=== PATIENT | male | born 1955 | race Caucasian/White ===

== ENCOUNTER 2022-04-01 15:23 | Emergency (ER) | payer BC, SELFPAY ==
[2022-04-01] VITALS (13 sets, daily range): BP systolic 152–169; BP diastolic 80–110; PULSE 50–54; RESP 18; TEMP 36.2; O2SAT 96–99
--- NOTE | ~2022-04-01 | CT_ITS ---
EXAMINATION: CT abdomen pelvis wo con DATE: 04/01/2022 19:07 INDICATION: POSSIBLE UTI, LOW CHRONIC BACK PAIN RADIATING DOWN L LEG TECHNIQUE: Computed tomography (CT) of the abdomen and pelvis was performed without intravenous contr ast. Automated exposure control and iterative reconstruction technique were employed. The dose-length product was 1073.30 mGy-cm. COMPARISON: None FINDINGS: Lower thorax: Aortic valve and coronary artery calcifications. Liver: Normal. Biliary/Gallbladder: Gallbladder is normal. No bile duct dilation. Spleen: Normal. Pancreas: No mass or duct dilation. Adrenals:No mass. Kidneys: 2.6 cm intermediate density left midpole mass. Multiple bilateral renal cysts and lesions th at are too small to characterize. Bilateral perinephric stranding. GI tract: No small or large bowel dilation. Appendix not visualized. Scattered diverticuli without ev idence of diverticulosis. Mesentery/Peritoneum: No ascites, mass, or free air. Multiple surgical clips in the right lower quadr ant. Retroperitoneum: No mass. Fusiform dilation of the infrarenal abdominal aorta up to a maximum transve rse diameter 2.6 cm. Pelvis: Bladder wall thickening. Prostatic calcifications, otherwise the pelvic organs are within nor mal limits. Bones/Soft Tissues: Soft tissues and body wall unremarkable. L2 compression fracture with vertebropla sty cement. Severe left hip arthritis. AVN changes in the right hip. Additional Findings: None. IMPRESSION: Possible cystitis versus outlet obstruction. Perinephric stranding may be related to medical renal di sease or ascending infection. Indeterminate left midpole renal mass, recommend nonemergent outpatient renal CT or MRI for further evaluation. 2.6 cm infrarenal abdominal aortic aneurysm, recommend follo w-up in 5 years. Reviewed, dictated and finalized at location [facility]. IMPRESSION: Possible cystitis versus outlet obstruction. Perinephric stranding may be relat ed to medical renal disease or ascending infection. Indeterminate left midpole renal mass, recommend nonemergent outpatient renal CT or MRI for further evalua tion. 2.6 cm infrarenal abdominal aortic aneurysm, recommend follow-up in 5 orestes flynn
[2022-04-01 16:11] LABS: Appearance Urine Cloudy (Clear); Bilirubin Urine Negative (Negative); Color Urine Yellow (Yellow); Glucose Urine UA Negative (Negative); Ketones Urine Negative (Negative); Leukocyte Esterase Ur 3+ LEU/UL (Negative); Nitrate Urine Positive (Negative); Protein Urine Negative (Negative)
[2022-04-01 16:14] LABS: Bacteria Urine Trace /hpf; Mucus Urine Rare /lpf; WBC Urine >75 /hpf
[2022-04-01 16:15] LABS: Add Urine Microscopic? YES; Blood Urine Trace-Intact (Negative)
[2022-04-01] MEDS: HYDROcodone/acetaminophen (*CRX) 5-325 MG TABLET 1 TAB PO (19:10)
--- NOTE | 2022-04-01 19:16 | PC.NURSE ---
BSSR from [facility]. States pt seems confused. Pt A & O 4 but appears confused at times. Bed alarm placed under patient for safety. Will continue to monitor.
[2022-04-01 19:29] LABS: Basophils Percent Auto 0.3 % (0.2-1.2); Eosinophils Absolute Auto 0.2 K/mm3 (0-0.3); Eosinophils Percent Auto 2.8 % (0-4.4); Hematocrit 40.9 % (42.0-52.0); Hemoglobin 13.6 g/dL (14.0-18.0); Immature Granulocyte Absolute 0.02 K/mm3 (0.00-0.031); Immature Granulocyte Percent A 0.3 % (0-0.5); Lymphocytes Absolute Auto 1.78 K/mm3 (0.9-3.2); Lymphocytes Percent Auto 26.2 % (18.3-44.2); Mean Corpuscular HGB Conc 33.3 g/dl (32-36); Mean Corpuscular Hemoglobin 31.1 pg (26-34); Mean Corpuscular Volume 93.6 fl (80-100); Mean Platelet Volume 9.2 fl (7.4-10.4); Monocytes Absolute Auto 0.7 K/mm3 (0.1-0.6); Monocytes Percent Auto 9.7 % (2.6-8.5); Neutrophils Absolute Auto 4.1 K/mm3 (1.3-6.7); Neutrophils Percent Auto 60.7 % (45.5-73.1); Platelet Count Result 200 k/mm3 (150-375); Red Blood Count 4.37 M/mm3 (4.6-6.20); Red Cell Distribution Width 13.5 % (11.5-14.5); White Blood Count 6.8 K/mm3 (4.5-10.0)
[2022-04-01 19:42] LABS: Alanine Aminotransferase 12 U/L (4-50); Albumin Level 4.5 g/dL (3.5-5.1); Alkaline Phosphatase 70 U/L (38-126); Anion Gap 4 mmol/L (8-16); Aspartate Amino Transferase 25 U/L (17-59); Bilirubin,Total 0.3 mg/dL (0.2-1.3); Blood Urea Nitrogen 17 mg/dL (9-20); Calcium 8.5 mg/dL (8.4-10.2); Carbon Dioxide 30 mmol/L (22-30); Chloride 95 mmol/L (98-107); Estimated CRCL calculation 121 ml/min; Estimated Glomerular Filt Rate > 60; Glucose 96 mg/dL (65-110); Lactic Acid Reflex 0.5 mmol/L (0.7-2.0); Potassium 4.4 mmol/L (3.4-5.0); Sodium 129 mmol/L (137-145)
--- NOTE | 2022-04-01 20:38 | PC.NURSE ---
RN went to start IV abx but patient states dont hook my up to that shit unless you get something for my nerves or pain. RN informed ERP. ERP in to speak with pt at this time. Pt states I am going to walk out of here if I dont get something.
[2022-04-01] MEDS: ALPRAZolam (*CRX) 0.25 MG TABLET PO (20:47)
--- NOTE | 2022-04-01 21:09 | PC.NURSE ---
Pt starting to remove IV. RN asked pt to stop at this time. Pt states take this shit out I do not need it now.
--- NOTE | 2022-04-01 21:16 | ED.BACK ---
HPI - Back Pain/Injury General Chief Complaint: Back Pain/Injury Stated Complaint: back pain Time Seen by Provider: 04/01/22 18:42 Source: RN notes reviewed History of Present Illness HPI Narrative: Patient presents emergency department from home for lower back pain. Patient states he has a chronic history of lower back pain and is on hydrocodone, Lyrica and meloxicam for the pain states the pain has become worse over the past several days with pain rating to the left hip denies any new trauma or injury denies any fevers or chills abdominal pain nausea vomiting diarrhea bowel or bladder incontinence or any other symptoms. Patient requested come to the ER from alf for evaluation of his back pain he does have a spinal stimulator Related Data Allergies Allergy/AdvReac Type Severity Reaction Status Date / Time No Known Allergies Allergy Verified 04/01/22 19:09 Review of Systems Review of Systems: Gen.: Denies fevers or chills ENT: Denies congestion Respiratory: Denies shortness of breath or cough CV: Denies chest pain or palpitations GI: Denies abdominal pain nausea, emesis or diarrhea denies incontinence Musculoskeletal: See HPI Neuro: Denies numbness, tingling, weakness or focal weakness Skin: Denies rash Except as documented, all other systems reviewed and negative [facility] Past Medical History Medical History (Updated 04/01/22 @ 21:22 by Odell Tabor DO) Chronic back pain Dementia Social History Social History (Updated 04/01/22 @ 21:19 by Odell Tabor DO) Smoking status: Former smoker Exam Narrative: APPEARANCE: No acute distress, nontoxic, resting in bed EYES: EOMI HEENT: Normocephalic, atraumatic, OMM RESPIRATORY: No respiratory distress Clear to auscultation bilaterally with no rhonchi wheezing or rales. CARDIOVASCULAR: Regular rate and rhythm without murmurs rubs or gallops. ABDOMINAL: Soft, nontender, nondistended, no rebound or guarding MUSCULOSKELETAl: Moves all extremities. No clubbing, cyanosis or edema. Back: No midline thoracic lumbar tenderness palpation tender palpation over left paravertebral muscles L4-5 and left piriformis region NEURO: Awake and alert. Following commands, speech normal, no focal deficits muscle strength 5 out of 5 bilateral lower extremities SKIN:: Warm, dry. No rashes lesions or abrasions PSYCHIATRIC: Normal affect/mood, Course Course Emergency Course: Reviewed records patient currently is on lidocaine patches meloxicam hydrocodone and Lyrica Patient states he is feeling very anxious requesting Xanax he is on Ativan and Xanax at home will give small amount of Xanax Discussed with patient results of workup and diagnosis. Discussed need for follow-up with primary care, proper use of medication, and reasons to return to the emergency department. Patient understands and agrees to current treatment plan Vital Signs Vital signs: Vital Signs Temperature 97.1 F L 04/01/22 15:53 Pulse Rate 54 L 04/01/22 15:53 Respiratory Rate 18 04/01/22 15:53 Blood Pressure 152/81 H 04/01/22 15:53 Pulse Oximetry 98 04/01/22 15:53 Temperature 97.1 F L 04/01/22 15:53 Pulse Rate 50 L 04/01/22 19:17 Respiratory Rate 18 04/01/22 19:17 Blood Pressure 164/110 H 04/01/22 20:32 Pulse Oximetry 96 04/01/22 20:32 MDM - Back Pain/Injury MDM Narrative Medical decision making narrative: Patient reports with chronic back pain he is on pain medications including narcotics and benzodiazepines at home on evaluation the patient does have a UA consistent with a UTI he is on Flomax for enlarged prostate lab results show a white count within normal limits as well as a normal lactic acid CT scan does show possible ascending UTI will treat with antibiotics at this time will discharge and follow-up as an outpatient his vital signs are also stable at this time Lab Data Result diagrams: 04/01/22 19:22 04/01/22 19:22 Labs: Lab Results
--- NOTE | 2022-04-01 21:57 | PC.NURSE ---
called [facility] to request transport. ETA [phone]
== END 2022-04-01 22:39 | disposition home or self-care (01) ==
PROVIDERS: Emergency Provider Emergency Medicine; PCP Internal Medicine
DX: N39.0 Urinary tract infection, site not specified (principal); M54.50 Low back pain, unspecified; G89.29 Other chronic pain; F03.90 Unspecified dementia, unspecified severity, without behavioral disturbance, psychotic disturbance, mood disturbance, and anxiety; Z87.891 Personal history of nicotine dependence
CPT/HCPCS: 36415; 74176; 80053; 81001; 83605; 85025; 87077; 87086; 87186; 96365; 99284; A9270; J0696

== ENCOUNTER 2022-04-29 08:54 | Emergency (ER) | payer BC, SELFPAY ==
[2022-04-29 08:55] VITALS: BP 130/84; PULSE 81; RESP 18; TEMP 36.9; O2SAT 94
[2022-04-29 09:00] VITALS: BP 135/69; PULSE 99; RESP 14; O2SAT 94
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
[2022-04-29 09:50] VITALS: RESP 18; O2SAT 94
[2022-04-29 10:00] VITALS: BP 113/69; PULSE 60; RESP 14; O2SAT 94
[2022-04-29 10:05] LABS: Appearance Urine Clear (Clear); Bilirubin Urine Negative (Negative); Blood Urine Negative (Negative); Color Urine Yellow (Yellow); Glucose Urine UA Negative (Negative); Ketones Urine Negative (Negative); Leukocyte Esterase Ur Negative LEU/UL (Negative); Nitrate Urine Negative (Negative); Protein Urine Trace mg/dL (Negative); Specific Grav Ur 1.015 (1.001-1.035); Urobilinogen Urine 0.2 mg/dL (<2.0); pH Urine 7.5 (5.0-9.0)
[2022-04-29 10:09] LABS: Mucus Urine Rare /lpf; Squamous Epithelial Cell Urine Rare /hpf (Few); WBC Urine 0-3 /hpf
[2022-04-29 10:13] LABS: Add Urine Microscopic? YES
[2022-04-29] MEDS: TETANUS,DIPHTHERIA,AC PERTUSSIS ADULT (0.5 ML) BOOSTRIX IM (10:21)
[2022-04-29 11:00] VITALS: BP 130/87; PULSE 60; RESP 17; O2SAT 97
== END 2022-04-29 11:35 ==
PROVIDERS: Physician Assistant; Emergency Provider Emergency Medicine; PCP Internal Medicine
DX: F03.90 Unspecified dementia, unspecified severity, without behavioral disturbance, psychotic disturbance, mood disturbance, and anxiety (principal); S60.411A Abrasion of left index finger, initial encounter; Z23 Encounter for immunization; Z87.891 Personal history of nicotine dependence; Y04.0XXA Assault by unarmed brawl or fight, initial encounter
CPT/HCPCS: 81001; 90471; 90715; 99282

== ENCOUNTER 2022-08-09 16:22 | Observation (INO) | payer BC, SELFPAY ==
[2022-08-09] VITALS (16 sets, daily range): BP systolic 139–163; BP diastolic 75–108; PULSE 54–80; RESP 11–20; TEMP 36.3–36.8; O2SAT 90–100; BMI 29.3; BMI 29.5
--- NOTE | ~2022-08-09 | XR_ITS ---
EXAMINATION: XR chest 2V DATE: 08/09/2022 17:11 INDICATION: Chest pain TECHNIQUE: frontal and lateral views of the chest were obtained. COMPARISON: CT abdomen and pelvis dated 04/01/2022 FINDINGS: Unchanged mild linear discoid atelectasis at the lingula. No other airspace opacities, pulmonary lorrie a, pleural effusion or pneumothorax. The cardiomediastinal silhouette is normal. Multiple tiny metall ic densities projecting over the bilateral chest of indeterminate etiology. Correlate with clinical h istory. L2 compression fracture with vertebroplasty. IMPRESSION: 1. Unchanged mild lingular discoid atelectasis/scarring. No other acute cardiopulmonary disease. Reviewed, dictated and finalized at location A. IMPRESSION: 1. Unchanged mild lingular discoid atelectasis/scarring. No other acute cardiop ulmonary disease.
--- NOTE | 2022-08-09 16:23 | ECG_ITS ---
Measurements Intervals [place] Rate: 64 P: 55 TX: 187 QRS: 70 QRSD: 96 T: 72 QT: 380 QTc: 394 Interpretive Statements SINUS RHYTHM BASELINE ARTIFACT- I, III, AVL NORMAL ECG NO PREVIOUS ECG AVAILABLE FOR COMPARISON Electronically Signed On 08-09-2022 16:29:34 CDT by Wild Alberts D.O.
[2022-08-09 16:50] LABS: Basophils Percent Auto 0.3 % (0.2-1.2); Eosinophils Absolute Auto 0.2 K/mm3 (0-0.3); Eosinophils Percent Auto 3.8 % (0-4.4); Hematocrit 37.2 % (42.0-52.0); Hemoglobin 12.7 g/dL (14.0-18.0); Immature Granulocyte Absolute 0.03 K/mm3 (0.00-0.031); Immature Granulocyte Percent A 0.5 % (0-0.5); Lymphocytes Absolute Auto 1.88 K/mm3 (0.9-3.2); Lymphocytes Percent Auto 31.1 % (18.3-44.2); Mean Corpuscular HGB Conc 34.1 g/dl (32-36); Mean Corpuscular Hemoglobin 30.8 pg (26-34); Mean Corpuscular Volume 90.1 fl (80-100); Mean Platelet Volume 9.4 fl (7.4-10.4); Monocytes Absolute Auto 0.6 K/mm3 (0.1-0.6); Monocytes Percent Auto 9.6 % (2.6-8.5); Neutrophils Absolute Auto 3.3 K/mm3 (1.3-6.7); Neutrophils Percent Auto 54.7 % (45.5-73.1); Platelet Count Result 228 k/mm3 (150-375); Red Blood Count 4.13 M/mm3 (4.6-6.20); Red Cell Distribution Width 13.8 % (11.5-14.5)
[2022-08-09 16:53] LABS: Alanine Aminotransferase 14 U/L (6-50); Albumin Level 4.3 g/dL (3.5-5.1); Alkaline Phosphatase 57 U/L (38-126); Anion Gap 11 mmol/L (8-16); Aspartate Amino Transferase 24 U/L (17-59); Bilirubin,Total 0.4 mg/dL (0.2-1.3); Blood Urea Nitrogen 19 mg/dL (9-20); Calcium 8.3 mg/dL (8.4-10.2); Carbon Dioxide 25 mmol/L (22-30); Chloride 91 mmol/L (98-107); Estimated Glomerular Filt Rate > 60; Glucose 99 mg/dL (65-110); Lipase 96 U/L (23-300); Sodium 127 mmol/L (137-145)
[2022-08-09 16:56] LABS: Prothrombin Time 13.1 Seconds (11.1-14.7)
[2022-08-09 16:57] LABS: Partial Thromboplastin Time 29.2 SECONDS (22.3-36.8)
[2022-08-09 17:04] LABS: Troponin I < 0.012 ng/mL (0.000-0.034)
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
[2022-08-09 19:52] LABS: Ethanol < 10 mg/dL (<10)
[2022-08-09 20:05] LABS: Troponin I < 0.012 ng/mL (0.000-0.034)
--- NOTE | 2022-08-09 20:42 | PM.IMHP ---
H&P: HPI History of Present Illness Date/Time: 08/09/22 20:42 Chief Complaint: chest pain [facility] Past Medical History Medical History Chronic back pain Dementia Family History Family History Mother Congestive heart failure Father Prostate carcinoma Social History Social History Smoking packs per day: 1.5 Smoking cigarettes per day: 30.0 Years smoked: 49 Smoking pack-years: 73.50 Smoking status: Current every day smoker Tobacco type: cigarettes Second hand tobacco smoke exposure: Yes Alcohol intake: current Drinks per week: 1 Substance use: former Substance use type: marijuana and prescription drug Other substance usage details: [place] Spiritual care concerns: No Meds Home Medications and Allergies Home Medications Medication Instructions Recorded Confirmed Type atorvastatin 40 mg tablet 40 mg PO DAILY 08/09/22 08/10/22 History carbamazepine 400 mg 400 mg PO BID 08/09/22 08/10/22 History tablet,extended release,12 hr citalopram 20 mg tablet 20 mg PO DAILY 08/09/22 08/10/22 History famotidine 40 mg tablet 40 mg PO Q12H 08/09/22 08/10/22 History lidocaine 5 % topical patch 1 patch transdermal Q12H PRN Back 08/09/22 08/10/22 History Pain naproxen 500 mg tablet 500 mg PO Q12H 08/09/22 08/10/22 History pregabalin 100 mg capsule 100 mg PO TID 08/09/22 08/10/22 History tamsulosin 0.4 mg capsule 0.4 mg PO DAILY 08/09/22 08/10/22 History Lactobacillus acidophilus 2 tablet PO Q12H 08/10/22 08/10/22 History acetaminophen 300 mg-codeine 30 mg 1 tablet PO BID 08/10/22 08/10/22 History tablet acetaminophen 500 mg tablet 500 mg PO Q6H PRN Pain (Scale 08/10/22 08/10/22 History Score 1-3) docusate sodium 100 mg capsule 100 mg PO BID 08/10/22 08/10/22 History haloperidol 2 mg tablet 2 mg PO QID 08/10/22 08/10/22 History ipratropium 0.5 mg-albuterol 3 mg 3 ml inhalation Q4H PRN Shortness 08/10/22 08/10/22 History (2.5 mg base)/3 mL nebulization Of Breath Or Wheezing soln multivitamin with minerals 1 tablet PO DAILY 08/10/22 08/10/22 History ondansetron 4 mg disintegrating 4 mg PO Q8H PRN Nausea 08/10/22 08/10/22 History tablet thiamine HCl (vitamin B1) 100 mg 100 mg PO DAILY 08/10/22 08/10/22 History tablet trazodone 50 mg tablet 50 mg PO HS 08/10/22 08/10/22 History Allergies Allergy/AdvReac Type Severity Reaction Status Date / Time No Known Allergies Allergy Verified 04/01/22 19:09 Vital Signs Vital Signs - 24 hr 08/09/22 16:31 08/09/22 17:30 08/09/22 18:30 Temperature 98.3 F 98.3 F 97.6 F Pulse Rate 68 65 64 Respiratory Rate 16 16 16 Blood Pressure 161/85 H 140/80 142/88 H Pulse Oximetry 97 100 100 Oxygen Delivery Room Air 08/09/22 19:30 08/09/22 20:29 Temperature 97.3 F L 98.3 F Pulse Rate 66 80 Respiratory Rate 16 16 Blood Pressure 147/91 H 144/85 H Pulse Oximetry 98 97 Oxygen Delivery H&P: Results Labs Labs: Short CBC 08/09/22 Range/Units 16:31 WBC 6.0 (4.5-10.0) K/mm3 Hgb 12.7 L (14.0-18.0) g/dL Hct 37.2 L (42.0-52.0) % Plt Count 228 (150-375) k/mm3 BMP 08/09/22 16:31 Sodium 127 L Potassium 4.0 Chloride 91 L Carbon Dioxide 25 BUN 19 Creatinine 0.70 Glucose 99 Calcium 8.3 L Cardiac Enzymes 08/09/22 08/09/22 Range/Units 16:31 19:34 Troponin I < 0.012 < 0.012 (0.000-0.034) ng/mL Liver Function 08/09/22 Range/Units 16:31 Total Bilirubin 0.4 (0.2-1.3) mg/dL AST 24 (17-59) U/L ALT 14 (6-50) U/L Alkaline Phosphatase 57 (38-126) U/L Albumin 4.3 (3.5-5.1) g/dL Assessment and Plan Assessment and plan (1) Chest pain: Code(s): R07.9 - Chest pain, unspecified Status: Acute (2) Dementia: Code(s): F03.90 - Unspecified dementia without behavioral disturbance
[2022-08-09 21:03] LABS: SARS-CoV-2 RNA PCR Negative
--- NOTE | 2022-08-09 22:03 | ADMGEN ---
This patient, Olivier Felix, was admitted to IMU Room 210-01 at 2140. Patient/family oriented to hospital policies and general routines including ID bracelet, bed and alarms, visiting hours, pain management, procedures, bathroom and other care routines, personal items, smoking policy, room service/diet, and visiting hours. Information on how to activate the Rapid Response Team has been discussed. Patient/Family are encouraged to report perceived risks to care and to ask questions if they do not understand what they are told or what they should do.
[2022-08-09 23:28] LABS: Troponin I 0.016 ng/mL (0.000-0.034)
[2022-08-10] VITALS (9 sets, daily range): BP systolic 137–144; BP diastolic 68–82; PULSE 56–74; RESP 16–21; TEMP 36.3–36.8; O2SAT 93–95
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
[2022-08-10] MEDS: HYDROcodone/acetaminophen (*CRX) 5-325 MG TABLET 1 TAB PO (01:54)
[2022-08-10] MEDS: ACETAMINOPHEN 500 MG TABLET PO (02:03)
[2022-08-10 04:56] LABS: Basophils Percent Auto 0.6 % (0.2-1.2); Eosinophils Absolute Auto 0.3 K/mm3 (0-0.3); Hematocrit 40.5 % (42.0-52.0); Hemoglobin 13.6 g/dL (14.0-18.0); Immature Granulocyte Absolute 0.02 K/mm3 (0.00-0.031); Immature Granulocyte Percent A 0.3 % (0-0.5); Lymphocytes Absolute Auto 1.89 K/mm3 (0.9-3.2); Lymphocytes Percent Auto 27.9 % (18.3-44.2); Mean Corpuscular HGB Conc 33.6 g/dl (32-36); Mean Corpuscular Hemoglobin 30.8 pg (26-34); Mean Corpuscular Volume 91.8 fl (80-100); Mean Platelet Volume 9.7 fl (7.4-10.4); Monocytes Absolute Auto 0.6 K/mm3 (0.1-0.6); Monocytes Percent Auto 8.9 % (2.6-8.5); Neutrophils Percent Auto 58.3 % (45.5-73.1); Platelet Count Result 240 k/mm3 (150-375); Red Blood Count 4.41 M/mm3 (4.6-6.20); Red Cell Distribution Width 13.7 % (11.5-14.5); White Blood Count 6.8 K/mm3 (4.5-10.0)
[2022-08-10 05:13] LABS: Alanine Aminotransferase 15 U/L (6-50); Albumin Level 4.3 g/dL (3.5-5.1); Alkaline Phosphatase 50 U/L (38-126); Anion Gap 11 mmol/L (8-16); Aspartate Amino Transferase 25 U/L (17-59); Bilirubin,Total 0.5 mg/dL (0.2-1.3); Blood Urea Nitrogen 14 mg/dL (9-20); Calcium 8.5 mg/dL (8.4-10.2); Carbon Dioxide 26 mmol/L (22-30); Chloride 97 mmol/L (98-107); Estimated CRCL calculation 108 ml/min; Estimated Glomerular Filt Rate > 60; Glucose 84 mg/dL (65-110); Potassium 3.7 mmol/L (3.4-5.0); Sodium 134 mmol/L (137-145)
--- NOTE | 2022-08-10 09:42 | PM.IMPN ---
Subjective Date/time seen: 08/10/22 09:42 chest pain rule out on RA Objective Data Vital Signs Vital Signs: Vital Signs - 24 hr 08/09/22 16:31 08/09/22 17:30 08/09/22 18:30 Temperature 98.3 F 98.3 F 97.6 F Pulse Rate 68 65 64 Respiratory Rate 16 16 16 Blood Pressure 161/85 H 140/80 142/88 H Pulse Oximetry 97 100 100 Oxygen Delivery Room Air 08/09/22 19:30 08/09/22 20:29 08/09/22 18:30 Temperature 97.3 F L 98.3 F Pulse Rate 66 80 56 L Respiratory Rate 16 16 14 Blood Pressure 147/91 H 144/85 H Pulse Oximetry 98 97 97 Oxygen Delivery 08/09/22 18:45 08/09/22 19:00 08/09/22 19:16 Temperature Pulse Rate 58 L 55 L 54 L Respiratory Rate 12 13 13 Blood Pressure Pulse Oximetry 96 96 97 Oxygen Delivery 08/09/22 19:30 08/09/22 19:45 08/09/22 20:14 Temperature Pulse Rate 56 L 57 L 56 L Respiratory Rate 15 14 17 Blood Pressure Pulse Oximetry 98 90 Oxygen Delivery 08/09/22 20:15 08/09/22 20:16 08/09/22 20:31 Temperature Pulse Rate 56 L 63 60 Respiratory Rate 13 20 11 L Blood Pressure 158/92 H 163/108 H Pulse Oximetry Oxygen Delivery 08/09/22 21:25 08/09/22 21:40 08/09/22 23:32 Temperature 97.7 F 97.8 F Pulse Rate 57 L 65 57 L Respiratory Rate 13 18 16 Blood Pressure 156/97 H 142/77 H 139/75 Pulse Oximetry 99 95 96 Oxygen Delivery 08/10/22 00:00 08/10/22 02:00 08/10/22 04:00 Temperature 98.3 F Pulse Rate 56 L 69 63 Respiratory Rate 16 Blood Pressure 137/68 Pulse Oximetry 93 Oxygen Delivery 08/10/22 04:00 08/10/22 04:00 08/10/22 06:00 Temperature Pulse Rate 69 67 Respiratory Rate Blood Pressure Pulse Oximetry Oxygen Delivery Room Air 08/10/22 08:00 Temperature 97.8 F Pulse Rate 59 L Respiratory Rate 21 H Blood Pressure 144/82 H Pulse Oximetry 95 Oxygen Delivery Intake/Output Intake/Output: Intake & Output 08/07/22 08/08/22 08/09/22 08/10/22 23:59 23:59 23:59 23:59 Output Total 1300 Balance -1300 Meds/Results Medications: Active Medications Generic Name Dose Route Start Last Admin Trade Name Freq PRN Reason Stop Dose Admin Acetaminophen 500 mg 08/10/22 00:55 08/10/22 02:03 Acetaminophen 500 Mg Tablet PO 500 mg Q6H PRN Administration Pain (Scale Score 1-3) Acetaminophen/Codeine Phosphate 1 tab 08/10/22 09:00 Acetaminophen/Codeine (*Crx) 300/30 Mg Tablet PO BID [facility] Albuterol 2.5 mg 08/10/22 01:26 Albuterol Sulfate Neb 2.5 Mg/0.5 Ml Inh INHALATION Q4H PRN Shortness Of Breath Or Wheezing Atorvastatin Calcium 40 mg 08/10/22 09:00 Atorvastatin 40 Mg Tablet PO DAILY [facility] Carbamazepine 400 mg 08/10/22 09:00 Carbamazepine Xr 200 Mg Tab.Er.12h PO Q12HR [facility] Citalopram Hydrobromide 20 mg 08/10/22 09:00 Citalopram Hydrobromide 20 Mg Tablet PO DAILY [facility] Docusate Sodium 100 mg 08/10/22 09:00 Docusate Sodium 100 Mg Capsule PO BID [facility] Famotidine 40 mg 08/10/22 09:00 Famotidine 20 Mg Tablet PO Q12HR [facility] Haloperidol 2 mg 08/10/22 09:00 Haloperidol 1 Mg Tablet PO QID [facility] Ipratropium [place] 0.5 mg 08/10/22 01:26 Ipratropium Br 0.02% Inh Soln 0.5 Mg/2.5 Ml Vial INHALATION Q4H PRN Shortness Of Breath Or Wheezing Lactobacillus Acidophilus 2 tablet 08/10/22 09:00 Acidophilus/Bulgaricus Chewable Tablet PO Q12HR [facility] Lidocaine 1 patch 08/10/22 00:55 Lidocaine 5% Patch TRANSDERM Q12H PRN Back Pain Multivitamins/Calcium 1 tablet 08/10/22 09:00 Therapeutic Multivitamins/Minerals Tab (*Bkc) PO DAILY [facility] Naproxen 500 mg 08/10/22 09:00 Naproxen 500 Mg Tablet PO Q12HR [facility] Pregabalin 100 mg 08/10/22 09:00 Pregabalin (*Crx) 50 Mg Capsule PO TID [facility] Tamsulosin HCl 0.4 mg 08/10/22 09:00 Tamsulosin Hcl 0.4 Mg Capsule PO DAILY [facility] Thiamine HCl 100 mg 08/10/22 09:00 Thiamine Hcl 100 Mg Tablet P
[2022-08-10] MEDS: FAMOTIDINE 20 MG TABLET 40 MG PO (09:59)
[2022-08-10] MEDS: DOCUSATE SODIUM 100 MG CAPSULE PO (10:00)
[2022-08-10] MEDS: PREGABALIN (*CRX) 50 MG CAPSULE 100 MG PO (10:00)
[2022-08-10] MEDS: ACETAMINOPHEN/CODEINE (*CRX) 300/30 MG TABLET 1 TAB PO (10:00)
[2022-08-10] MEDS: THERAPEUTIC MULTIVITAMINS/MINERALS TAB (*BKC) 1 TABLET PO (10:01)
[2022-08-10] MEDS: ACIDOPHILUS/BULGARICUS CHEWABLE TABLET 2 TABLET PO (10:01)
[2022-08-10] MEDS: HALOPERIDOL 1 MG TABLET 2 MG PO (10:01)
[2022-08-10] MEDS: CARBAMAZEPINE XR 200 MG TAB.ER.12H 400 MG PO (10:01)
[2022-08-10] MEDS: CITALOPRAM HYDROBROMIDE 20 MG TABLET PO (10:02)
[2022-08-10] MEDS: TAMSULOSIN HCL 0.4 MG CAPSULE PO (10:02)
[2022-08-10] MEDS: THIAMINE HCL 100 MG TABLET PO (10:02)
[2022-08-10] MEDS: ATORVASTATIN 40 MG TABLET PO (10:02)
[2022-08-10] MEDS: NAPROXEN 500 MG TABLET PO (10:03)
--- NOTE | 2022-08-10 12:58 | PM.DS ---
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 DS: Summary Hospital Course Reason for hospitalization: chest pain Hospital Course: 66yo M admitted from local [facility] w . Pain was described as L sided, sharp, non radiating, worse w pressing on chest, intermittent, w duration of lasting about one day. Today he is pain free except w palpation of intracostal spaces over L sternal border. He does have a 40yr pack history and his mother did have CAD w [place] at age 65. Pt has negative troponins x 3 w normal EKG. He is discharged back to [facility] in stable condition with indications to follow up w his PCP. Due to his fx history and smoking history he will benefit from outpt Cardio followup. He is on RA and not in COPD exacerbation at the time of my interview. Status at Discharge Functional status at discharge: uses cane/walker Overall status at discharge: patient is back to baseline Time Spent with Patient Time attestation: Total time spent providing and/or coordinating discharge services: Exam Narrative: GEN: NAD, AAOx2, cooperative HEENT: NCAT, MMM, EOMI Neck: no JVD Heart: S1S2 RRR Lungs: CTA B/l Abd: soft, NT, ND, bowel sounds normoactive Ext: moves all, no cyanosis, no clubbing, no edema, mild symmetric weakness throughout Neuro: normal cognition, moves all extremities equally, CN intact Psych: mood and affect congruent DS: Data Data Completed and Pending Labs on day of discharge: Labs from last 24 hours 08/10/22 08/10/22 08/09/22 04:41 04:41 22:34 WBC 6.8 RBC 4.41 L Hgb 13.6 L Hct 40.5 L MCV 91.8 MCH 30.8 MCHC 33.6 RDW 13.7 Plt Count 240 MPV 9.7 Immature Gran % (Auto) 0.3 Neut % (Auto) 58.3 Lymph % (Auto) 27.9 [place] % (Auto) 8.9 H Eos % (Auto) 4.0 Baso % (Auto) 0.6 Lymph # (Auto) 1.89 [place] # (Auto) 0.6 Eos # (Auto) 0.3 Baso # (Auto) 0.0 Abs Immat Gran (auto) 0.02 Absolute Neuts (auto) 4.0 Absolute Nucleated RBC 0.0 Nucleated RBC % 0.0 PT INR APTT Sodium 134 L Potassium 3.7 Chloride 97 L Carbon Dioxide 26 Anion Gap 11 BUN 14 D Creatinine 0.60 L Estim Creat Clear Calc 108 Estimated GFR > 60 Glucose 84 Calcium 8.5 Total Bilirubin 0.5 AST 25 ALT 15 Alkaline Phosphatase 50 Troponin I 0.016 D Total Protein 7.0 Albumin 4.3 Lipase Ethyl Alcohol SARS-CoV-2 RNA (RT-PCR) 08/09/22 08/09/22 08/09/22 20:13 19:34 19:34 WBC RBC Hgb Hct MCV MCH MCHC RDW Plt Count MPV Immature Gran % (Auto) Neut % (Auto) Lymph % (Auto) [place] % (Auto) Eos % (Auto) Baso % (Auto) Lymph # (Auto) [place] # (Auto) Eos # (Auto) Baso # (Auto) Abs Immat Gran (auto) Absolute Neuts (auto) Absolute Nucleated RBC Nucleated RBC % PT INR APTT Sodium Potassium Chloride Carbon Dioxide Anion Gap BUN Creatinine Estim Creat Clear Calc Estimated GFR Glucose Calcium Total Bilirubin
== END 2022-08-10 16:07 ==
LOC: ANHED 20:20 → ANHIMU 23:36
PROVIDERS: Emergency Medicine; Admitting Provider Internal Medicine; Emergency Provider Emergency Medicine; PCP Internal Medicine; Visit Provider Hospitalist
DX: R07.9 Chest pain, unspecified (principal); F03.90 Unspecified dementia, unspecified severity, without behavioral disturbance, psychotic disturbance, mood disturbance, and anxiety; R06.02 Shortness of breath; M54.9 Dorsalgia, unspecified; G89.29 Other chronic pain; J43.9 Emphysema, unspecified; J98.11 Atelectasis; F17.210 Nicotine dependence, cigarettes, uncomplicated; Z20.822 Contact with and (suspected) exposure to COVID-19; Z79.1 Long term (current) use of non-steroidal anti-inflammatories (NSAID); Z79.51 Long term (current) use of inhaled steroids; Z79.899 Other long term (current) drug therapy; Z82.49 Family history of ischemic heart disease and other diseases of the circulatory system
CPT/HCPCS: 36415; 71046; 80053; 80307; 83690; 84484; 85025; 85610; 85730; 93005; 99285; A9270; C9803; G0378; G0379; U0003; U0005